=== PATIENT | female | born 1945 | race Caucasian/White ===

== ENCOUNTER 2019-08-05 16:16 | Inpatient (IN) | payer BC ==
[~2019-08-05] VITALS: Ht 154.9 cm; Wt 82.7 kg
[~2019-08-05 16:16] MED LIST: ATORVASTATIN CA10 M1; CELESTONE0.6 MG/5 M PO; LEVOTHYROXIN0.025 M2 PO; METFORMIN ER500 M1 PO
[2019-08-05 16:21] VITALS: Ht 154.9 cm; Wt 82.7 kg
[2019-08-05 17:05] LABS: CALCIUM 9.3 mg/dL (8.5-10.1); CARBON DIOXIDE 22.6 mmol/L (21-32); CHLORIDE SERUM 107 mmol/L (98-107); CREATININE SERUM 1.3 mg/dL (0.6-1.0); GLUCOSE SERUM 121 mg/dL (74-106); POTASSIUM SERUM 3.4 mmol/L (3.5-5.1); SODIUM SERUM 143 mmol/L (136-145)
[2019-08-05 17:11] LABS: PLATELET COUNT 332 x10^3mcL (130-400)
[2019-08-05 17:18] LABS: ALBUMIN 3.4 g/dL (3.4-5.0); ALKALINE PHOSPHATASE 111 U/L (46-116); ALT/SGPT 25 U/L (14-59); AST/SGOT 37 U/L (15-37); BILIRUBIN TOTAL 0.43 mg/dL (0.20-1.00); RED CELL DISTRIBUTION WIDTH 14.6 % (11.5-14.5); TOTAL PROTEIN, SERUM 7.4 g/dL (6.4-8.2)
[2019-08-05] MEDS ORDERED: COU1 PO (17:19)
[2019-08-05] MEDS ORDERED: CHLORTHALIDONE25 MG PO (17:20)
[2019-08-05] MEDS ORDERED: AMLODIPINE VALS (17:20)
[2019-08-05] MEDS ORDERED: SPRYCEL100 MG PO (17:20)
[2019-08-05] MEDS ORDERED: CILOSTAZOL100 M1 PO (17:21)
[2019-08-05] MEDS ORDERED: VALSARTAN320 MG (17:21)
[2019-08-05 17:35] LABS: microscopic required? YES; urine erythrocyte TRACE (NEGATIVE)
[2019-08-05 18:02] LABS: T3 TOTAL 1.15 ng/mL
[2019-08-05 18:20] LABS: CHOLESTEROL/HDL RATIO 2.6
[2019-08-05 18:28] LABS: FREE T4 1.36 ng/dL (0.76-1.46); FREE THYROXINE INDEX 3.7 ug/dL (1.4-4.5); T4(THYROXINE) 11.7 ug/dL (4.7-13.3)
[2019-08-05 19:47] VITALS: BP 140/59
[2019-08-05 21:12] LABS: AMPHETAMINE QUAL UR NONE DETECTED (See below)
[2019-08-06 05:15] VITALS: BP 111/63
[2019-08-06 06:27] LABS: BASOPHIL % 1.2 % (0-2); PLATELET COUNT 293 x10^3mcL (130-400)
[2019-08-06 06:36] LABS: RED CELL DISTRIBUTION WIDTH 14.7 % (11.5-14.5)
[2019-08-06 06:51] LABS: CALCIUM 8.7 mg/dL (8.5-10.1); CARBON DIOXIDE 28.1 mmol/L (21-32); CHLORIDE SERUM 106 mmol/L (98-107); CREATININE SERUM 1.3 mg/dL (0.6-1.0); GLUCOSE SERUM 97 mg/dL (74-106); MAGNESIUM 2.3 mg/dL (1.8-2.4); PHOSPHOROUS 3.5 mg/dL (2.5-4.9); POTASSIUM SERUM 3.1 mmol/L (3.5-5.1); SODIUM SERUM 145 mmol/L (136-145)
[2019-08-06 08:05] VITALS: BP 134/44
[2019-08-06 12:10] VITALS: BP 121/58
[2019-08-06 17:24] VITALS: BP 133/65
[2019-08-06 19:20] VITALS: BP 105/42
[2019-08-07 05:41] VITALS: BP 127/54
[2019-08-07 06:25] LABS: BASOPHIL % 0.8 % (0-2); PLATELET COUNT 303 x10^3mcL (130-400)
[2019-08-07 06:29] LABS: RED CELL DISTRIBUTION WIDTH 14.7 % (11.5-14.5)
[2019-08-07 06:44] LABS: CALCIUM 8.8 mg/dL (8.5-10.1); CARBON DIOXIDE 27.6 mmol/L (21-32); CHLORIDE SERUM 106 mmol/L (98-107); CREATININE SERUM 1.4 mg/dL (0.6-1.0); GLUCOSE SERUM 113 mg/dL (74-106); MAGNESIUM 2.2 mg/dL (1.8-2.4); SODIUM SERUM 143 mmol/L (136-145)
[2019-08-07 08:27] VITALS: BP 115/78
[2019-08-07 08:29] VITALS: BP 114/52
[2019-08-07] MEDS ORDERED: CARCD120 PO (11:43)
[2019-08-07 12:14] VITALS: BP 114/52
[2019-08-07 12:35] VITALS: BP 129/58
[2019-08-07] MEDS ORDERED: KEFLEX500 M1 PO (14:18)
[2019-08-07] MEDS ORDERED: KEFLEX250 M1 PO (14:57)
[2019-08-07] MEDS ORDERED: DILT-XR120 MG PO (14:57)
== END 2019-08-07 15:05 | disposition home or self-care (01) | DRG 308 ==
LOC: ED 16:16 → DU 17:27 → ED 17:27 → DU 17:28 → ED 17:28 → IC 17:28 → DU 19:28 → MU 08-06 14:31
PROVIDERS: Family Medicine; Student in an Organized Health Care Education/Training Program; ADMIT Hospitalist
DX: I48.0 Paroxysmal atrial fibrillation (principal); N17.0 Acute kidney failure with tubular necrosis; E78.5 Hyperlipidemia, unspecified; E03.9 Hypothyroidism, unspecified; I25.2 Old myocardial infarction; Z85.6 Personal history of leukemia; Z79.01 Long term (current) use of anticoagulants; Z79.84 Long term (current) use of oral hypoglycemic drugs; Z96.653 Presence of artificial knee joint, bilateral; I12.9 Hypertensive chronic kidney disease with stage 1 through stage 4 chronic kidney disease, or unspecified chronic kidney disease; E11.22 Type 2 diabetes mellitus with diabetic chronic kidney disease; E11.51 Type 2 diabetes mellitus with diabetic peripheral angiopathy without gangrene; N18.9 Chronic kidney disease, unspecified
CPT/HCPCS: 82962; 83880; 84439; G0378; J1940; J3475; J3490; J7030; Q0092